=== PATIENT | male | born 1980 | race African-American/Black ===

== ENCOUNTER 2016-12-10 00:59 | Inpatient (IN) | payer SELFPAY ==
[2016-12-10] VITALS (12 sets, daily range): BP systolic 115–161; BP diastolic 75–96; PULSE 85–108; RESP 12–15; TEMP 98.3–99.3; O2SAT 99–100
[2016-12-10] MEDS ORDERED: DIPHTH/TETANUS/ACEL PERTUSSIS (BOOSTER) 0.5 ML VIAL/PFS IM ONE ×2 (01:03→01:31)
[2016-12-10] MEDS ORDERED: ceFAZolin 2 GM PREMIX 50 ML ONE (01:03)
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
[2016-12-10 01:20] LABS: I-STAT POTASSIUM 3.3 MMOL/L (3.5-4.9)
[2016-12-10 01:22] LABS: AUTOMATED NEUTROPHIL # 2.9 TH/MM3 (1.8-7.7); BASOPHIL # 0.1 TH/MM3 (0-0.2); EOSINOPHIL # 0.1 TH/MM3 (0-0.4); EOSINOPHIL % 1.7 % (0.0-4.0); HEMATOCRIT 37.3 % (39.0-51.0); HEMO FLAGS DIFF FINAL; LYMPHOCYTE # 3.3 TH/MM3 (1.0-4.8); MEAN CELL VOLUME 105.9 FL (80.0-100.0); MEAN CORPUSCULAR HEMOGLOBIN 36.2 PG (27.0-34.0); MEAN CORPUSCULAR HGB CONC 34.2 % (32.0-36.0); NEUT % 42.3 % (16.0-70.0); PLATELET COUNT 165 TH/MM3 (150-450); RED BLOOD COUNT 3.53 MIL/MM3 (4.50-5.90); RED CELL DISTRIBUTION WIDTH 15.4 % (11.6-17.2); WHITE BLOOD COUNT 6.8 TH/MM3 (4.0-11.0)
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
[2016-12-10] MEDS ORDERED: ceFAZolin 2 GM PREMIX 50 ML IV STA (01:32)
[2016-12-10 01:33] LABS: APTT (PATIENT) 21.7 SEC (24.3-30.1); PROTHROMBIN TIME - PATIENT 10.8 SEC (9.8-11.6)
[2016-12-10] MEDS ORDERED: metroNIDAZOLE 500 MG INJ 100 ML IV ONE (01:38)
[2016-12-10] MEDS ORDERED: SODIUM CHLOR 0.9% 1000 ML INJ 1,000 ML IV ONE (01:45)
[2016-12-10 02:11] LABS: AUTOMATED NEUTROPHIL # 4.1 TH/MM3 (1.8-7.7); BASOPHIL % 0.8 % (0.0-2.0); EOSINOPHIL # 0.1 TH/MM3 (0-0.4); EOSINOPHIL % 1.1 % (0.0-4.0); HEMATOCRIT 25.2 % (39.0-51.0); HEMO FLAGS DIFF FINAL; LYMPH % 21.8 % (9.0-44.0); LYMPHOCYTE # 1.3 TH/MM3 (1.0-4.8); MEAN CELL VOLUME 104.8 FL (80.0-100.0); MEAN CORPUSCULAR HEMOGLOBIN 36.4 PG (27.0-34.0); MEAN CORPUSCULAR HGB CONC 34.8 % (32.0-36.0); MONO % 7.6 % (0.0-8.0); NEUT % 68.7 % (16.0-70.0); PLATELET COUNT 112 TH/MM3 (150-450); RED CELL DISTRIBUTION WIDTH 15.2 % (11.6-17.2); WHITE BLOOD COUNT 5.9 TH/MM3 (4.0-11.0)
[2016-12-10 02:22] LABS: APTT (PATIENT) 31.2 SEC (24.3-30.1); INTERNATIONAL NORMALIZED RATIO 1.1 RATIO; PROTHROMBIN TIME - PATIENT 12.7 SEC (9.8-11.6)
[2016-12-10 02:27] LABS: BLOOD GAS BASE EXCESS -7.6 mmol/L (-2-2); BLOOD GAS CARBOXYHEMOGLOBIN 7.5 % (0-4); BLOOD GAS HCO3 18 mmol/L (22-26); BLOOD GAS METHEMOGLOBIN 1.2 % (0-2); BLOOD GAS O2 HGB SATURATION 91 % (90-100); BLOOD GAS OXYGEN CONTENT 16.1 Vol % (12.0-20.0); BLOOD GAS PCO2 40 mmHg (38-42); BLOOD GAS PO2 220 mmHg (61-120); BLOOD GAS TOTAL HGB 12.2 G/DL (12.0-16.0); TEMP CORR TO 98.6
[2016-12-10 02:28] LABS: CRITICAL VALUE YES; FIO2 54 %; OXYGEN DEVICE VENTILATOR; VENT SETTINGS UNKNOWN-OR
[2016-12-10 02:29] LABS: DRAW SITE UNKNOWN-OR; STAT NO
[2016-12-10 02:30] LABS: BICARBONATE 21.2 MEQ/L (21.0-32.0); POTASSIUM 3.5 MEQ/L (3.5-5.1)
[2016-12-10 02:36] LABS: REVIEW FLAG FINAL
[2016-12-10 02:45] LABS: CALCIUM-PROTEIN CORRECTED 8.1 MG/DL (8.5-10.1)
[2016-12-10] MEDS: LACTATED RINGER'S 1000 ML INJ 1,000 ML IV SCH ×3 (02:53→16:41)
[2016-12-10] MEDS ORDERED: fentaNYL DRIP 250 ML IV SCH ×2 (03:00→17:00)
[2016-12-10] MEDS ORDERED: ONDANSETRON HCL 4 MG/2 ML VIAL IV PRN (03:00)
[2016-12-10] MEDS ORDERED: CHLORHEXIDINE GLUCONATE 2 % 1 PACK (2 CLOTHS) TOP PRN (03:00)
[2016-12-10] MEDS ORDERED: MAGNESIUM HYDROXIDE SUSP 30 ML CUP PO PRN (03:00)
[2016-12-10] MEDS ORDERED: MISCELLANEOUS NURSING INFORMATION XX SCH (03:00)
[2016-12-10] MEDS ORDERED: DO NOT ADM ANY ANTICOAGULANT DRUGS PRN (03:03)
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
[2016-12-10] MEDS ORDERED: MIDAZOLAM HCL 2 MG/2 ML VIAL ONE (03:20)
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
[2016-12-10] MEDS: CHLORHEXIDINE GLUCONATE 2 % 1 PACK (2 CLOTHS) TOP SCH (04:00)
--- NOTE | 2016-12-10 04:05 | RADRPT ---
EXAM DATE/TIME: 12/10/2016 04:25 [facility] COMPARISON: CHEST SINGLE AP, December 10, 2016, 0:54. INDICATIONS : Left chest tube placement MEDICAL HISTORY : None. SURGICAL HISTORY : None. ENCOUNTER: Initial ACUITY: 1 day PAIN SCORE: Non-responsive. LOCATION: Left chest FINDINGS: A single portable frontal view of the chest shows interval placement of a left thoracostomy tube. Tip is at the apex. No pneumothorax. Tip of the endotracheal tube 5 cm proximal to luis. The nasogastr ic tube in the body the stomach. The parenchymal consolidation on the left perihilar distribution on the prior study is no longer present. Lungs are clear. No effusions. Heart is normal in size. CONCLUSION: Left thoracostomy tube. No pneumothorax. Alessio Daley Jr., MD on December 10, 2016 at 4:02 Board Certified Radiologist. This report was verified electronically.
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
[2016-12-10 04:35] LABS: BLOOD GAS BASE EXCESS -4.2 mmol/L (-2-2); BLOOD GAS CARBOXYHEMOGLOBIN 4.5 % (0-4); BLOOD GAS HCO3 21 mmol/L (22-26); BLOOD GAS METHEMOGLOBIN 1.1 % (0-2); BLOOD GAS O2 HGB SATURATION 94 % (90-100); BLOOD GAS OXYGEN CONTENT 14.7 Vol % (12.0-20.0); BLOOD GAS PCO2 42 mmHg (38-42); BLOOD GAS PO2 207 mmHg (61-120); BLOOD GAS TOTAL HGB 10.8 G/DL (12.0-16.0); CRITICAL VALUE NO; OXYGEN DEVICE VENTILATOR; TEMP CORR TO 98.6
[2016-12-10 04:36] LABS: DRAW SITE ART LINE; FIO2 50 %; STAT NO; VENT SETTINGS SIMV/IMV
[2016-12-10] MEDS: PROPOFOL 1000 MG/100 ML INJ 100 ML IV SCH ×2 (06:32→09:49)
[2016-12-10 06:40] LABS: HEMATOCRIT 29.5 % (39.0-51.0); MEAN CELL VOLUME 104.9 FL (80.0-100.0); MEAN CORPUSCULAR HEMOGLOBIN 35.8 PG (27.0-34.0); MEAN CORPUSCULAR HGB CONC 34.1 % (32.0-36.0); PLATELET COUNT 123 TH/MM3 (150-450); RED BLOOD COUNT 2.81 MIL/MM3 (4.50-5.90); RED CELL DISTRIBUTION WIDTH 15.3 % (11.6-17.2); REVIEW FLAG FINAL; WHITE BLOOD COUNT 12.4 TH/MM3 (4.0-11.0)
[2016-12-10 06:53] LABS: BICARBONATE 23.2 MEQ/L (21.0-32.0); CALCIUM-PROTEIN CORRECTED 8.2 MG/DL (8.5-10.1); MAGNESIUM 1.8 MG/DL (1.5-2.5); POTASSIUM 3.4 MEQ/L (3.5-5.1); TOTAL BILIRUBIN ADULT 0.3 MG/DL (0.2-1.0)
[2016-12-10] MEDS ORDERED: POTASSIUM PHOSPHATE INJ 30 MMOL in SODIUM CHLOR 0.9% 250 ML INJ 250 ML IV PRN (08:15)
[2016-12-10] MEDS ORDERED: MAGNESIUM OXIDE 400 MG TAB PO PRN (08:15)
[2016-12-10] MEDS ORDERED: MAGNESIUM SULFATE INJ 2 GM in SODIUM CHLORIDE 0.9% INJ 96 ML IV PRN (08:15)
[2016-12-10] MEDS ORDERED: POTASSIUM CHLOR 20 MEQ PREMIX 100 ML IV PRN (08:15)
[2016-12-10] MEDS ORDERED: POTASSIUM PHOSPHATE MONOBASIC 500 MG TAB PO/TUBE PRN (08:15)
[2016-12-10] MEDS ORDERED: POTASSIUM PHOSPHATE MONOBASIC 500 MG TAB PO PRN (08:15)
[2016-12-10] MEDS ORDERED: MAGNESIUM SULFATE INJ 4 GM in SODIUM CHLORIDE 0.9% INJ 92 ML IV PRN (08:15)
[2016-12-10] MEDS ORDERED: SODIUM PHOSPHATE INJ 30 MMOL in SODIUM CHLOR 0.9% 250 ML INJ 240 ML IV PRN (08:15)
[2016-12-10] MEDS ORDERED: POTASSIUM CHLOR 40 MEQ PREMIX 100 ML IV PRN ×2 (08:15)
[2016-12-10] MEDS ORDERED: RESP: ALBUTEROL 2.5 MG/IPRATROPIUM 0.5 MG NEB (PRN) NEB (08:15)
[2016-12-10] MEDS ORDERED: DEXMEDETOMIDINE INJ 200 MCG in SODIUM CHLORIDE 0.9% INJ 50 ML IV SCH (09:30)
[2016-12-10] MEDS: RESP: ALBUTEROL 2.5 MG/IPRATROPIUM 0.5 MG NEB (SCH) NEB ×3 (09:40→20:30)
[2016-12-10] MEDS: DOCUSATE SODIUM 100 MG CAP PO SCH ×2 (09:49→20:43)
[2016-12-10] MEDS: LACTULOSE SYRUP 20 GM/30 ML CUP PO SCH (09:49)
[2016-12-10] MEDS: PANTOPRAZOLE SODIUM 40 MG VIAL IV PUSH SCH (09:49)
[2016-12-10] MEDS ORDERED: MULTIVITAMIN INJ 10 ML, THIAMINE INJ 100 MG, FOLIC ACID INJ 1 MG in SODIUM CHLORID 0.9%... IV ONE (10:15)
[2016-12-10] MEDS: CHLORHEXIDINE 0.12% (ORAL KIT) 15 ML CUP MT SCH (10:16)
[2016-12-10] MEDS ORDERED: LACTATED RINGER'S 1000 ML INJ 2,000 ML IV ONE (12:00)
[2016-12-10] MEDS ORDERED: PROPOFOL 200 MG/20 ML AMP IV ONE (12:00)
[2016-12-10] MEDS: MORPHINE SULFATE 4 MG/ML INJ IV PRN ×4 (13:29→21:54)
[2016-12-10] MEDS: ACETAMINOPHEN/HYDROcodone 325 MG/7.5 MG TAB PO PRN ×2 (14:31→20:51)
[2016-12-10] MEDS: POTASSIUM CHLOR 20 MEQ PREMIX 100 ML IV PRN ×2 (14:31→17:34)
[2016-12-10] MEDS: ENOXAPARIN SODIUM 30 MG/0.3 ML SYRINGE SQ SCH (17:57)
[2016-12-11] VITALS (10 sets, daily range): BP systolic 156–176; BP diastolic 89–102; PULSE 98–111; RESP 12–20; TEMP 98–101.4; O2SAT 92–99
[2016-12-11] MEDS: MORPHINE SULFATE 4 MG/ML INJ IV PRN ×6 (00:08→10:26)
[2016-12-11] MEDS: LACTATED RINGER'S 1000 ML INJ 1,000 ML IV SCH (00:54)
[2016-12-11] MEDS: SODIUM CHLORIDE 0.9% FLUSH 10 ML FLUSH IV FLUSH PRN ×2 (02:22→04:39)
[2016-12-11] MEDS: ACETAMINOPHEN/HYDROcodone 325 MG/7.5 MG TAB PO PRN ×2 (02:23→08:25)
[2016-12-11] MEDS: RESP: ALBUTEROL 2.5 MG/IPRATROPIUM 0.5 MG NEB (SCH) NEB (04:00)
[2016-12-11] MEDS: CHLORHEXIDINE GLUCONATE 2 % 1 PACK (2 CLOTHS) TOP SCH (04:00)
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
[2016-12-11 04:22] LABS: AUTOMATED NEUTROPHIL # 8.3 TH/MM3 (1.8-7.7); BASOPHIL # 0.1 TH/MM3 (0-0.2); BASOPHIL % 0.6 % (0.0-2.0); EOSINOPHIL # 0.1 TH/MM3 (0-0.4); EOSINOPHIL % 0.6 % (0.0-4.0); HEMATOCRIT 28.8 % (39.0-51.0); HEMO FLAGS DIFF FINAL; LYMPH % 14.1 % (9.0-44.0); LYMPHOCYTE # 1.5 TH/MM3 (1.0-4.8); MEAN CORPUSCULAR HEMOGLOBIN 36.5 PG (27.0-34.0); MEAN CORPUSCULAR HGB CONC 34.8 % (32.0-36.0); MONO % 7.7 % (0.0-8.0); PLATELET COUNT 116 TH/MM3 (150-450); RED BLOOD COUNT 2.75 MIL/MM3 (4.50-5.90); RED CELL DISTRIBUTION WIDTH 15.5 % (11.6-17.2); WHITE BLOOD COUNT 10.7 TH/MM3 (4.0-11.0)
[2016-12-11 04:57] LABS: POTASSIUM 3.4 MEQ/L (3.5-5.1)
[2016-12-11] MEDS: ENOXAPARIN SODIUM 30 MG/0.3 ML SYRINGE SQ SCH ×2 (06:17→16:45)
[2016-12-11] MEDS: POTASSIUM CHLOR 20 MEQ PREMIX 100 ML IV PRN (06:18)
[2016-12-11] MEDS: CHLORHEXIDINE 0.12% (ORAL KIT) 15 ML CUP MT SCH (08:00)
[2016-12-11] MEDS: LACTULOSE SYRUP 20 GM/30 ML CUP PO SCH (08:17)
[2016-12-11] MEDS: PANTOPRAZOLE SODIUM 40 MG VIAL IV PUSH SCH (08:25)
[2016-12-11] MEDS: DOCUSATE SODIUM 100 MG CAP PO SCH (08:25)
[2016-12-11] MEDS ORDERED: LACTULOSE SYRUP 20 GM/30 ML CUP PO PRN (10:15)
[2016-12-11] MEDS: diphenhydrAMINE HCL 50 MG/ML VIAL IV PUSH PRN ×2 (12:17→21:54)
[2016-12-11] MEDS: HYDROmorphone HCL PF 1 MG/ML VIAL IV PUSH PRN ×3 (12:17→21:23)
[2016-12-11] MEDS: ACETAMINOPHEN 325 MG TAB PO PRN ×2 (12:39→16:44)
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
[2016-12-11] MEDS: DOCUSATE SODIUM 50 MG/SENNA 8.6 MG TAB PO SCH (20:07)
[2016-12-11] MEDS ORDERED: DOCUSATE SODIUM 50 MG/SENNA 8.6 MG TAB PO SCH (21:00)
[2016-12-12] VITALS (7 sets, daily range): BP systolic 134–168; BP diastolic 90–105; PULSE 98–124; RESP 16–21; TEMP 97–99.8; O2SAT 93–97
[2016-12-12] MEDS: HYDROmorphone HCL PF 1 MG/ML VIAL IV PUSH PRN ×5 (01:12→21:16)
[2016-12-12] MEDS ORDERED: HYDROmorphone HCL PF 1 MG/ML VIAL IV ONE (02:45)
[2016-12-12] MEDS: CHLORHEXIDINE GLUCONATE 2 % 1 PACK (2 CLOTHS) TOP SCH (04:00)
[2016-12-12] MEDS: ENOXAPARIN SODIUM 30 MG/0.3 ML SYRINGE SQ SCH ×2 (04:17→16:59)
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
[2016-12-12] MEDS ORDERED: MISCELLANEOUS NURSING INFORMATION XX SCH (07:30)
[2016-12-12] MEDS ORDERED: oxyCODONE/ACETAMINOPHEN 5 MG/325 MG TAB PO PRN (08:30)
[2016-12-12] MEDS: oxyCODONE/ACETAMINOPHEN 5 MG/325 MG TAB PO PRN ×4 (08:45→22:44)
[2016-12-12] MEDS: DOCUSATE SODIUM 50 MG/SENNA 8.6 MG TAB PO SCH ×2 (08:45→21:20)
[2016-12-12] MEDS: diphenhydrAMINE HCL 50 MG/ML VIAL IV PUSH PRN ×3 (08:45→21:16)
[2016-12-12] MEDS: PANTOPRAZOLE SOD 40 MG DELAYED RELEASE TAB PO SCH (08:45)
[2016-12-12 10:24] LABS: AUTOMATED NEUTROPHIL # 8.2 TH/MM3 (1.8-7.7); BASOPHIL % 0.4 % (0.0-2.0); EOSINOPHIL # 0.1 TH/MM3 (0-0.4); EOSINOPHIL % 0.7 % (0.0-4.0); HEMATOCRIT 30.1 % (39.0-51.0); HEMO FLAGS DIFF FINAL; LYMPH % 14.2 % (9.0-44.0); LYMPHOCYTE # 1.6 TH/MM3 (1.0-4.8); MEAN CELL VOLUME 104.2 FL (80.0-100.0); MEAN CORPUSCULAR HEMOGLOBIN 36.5 PG (27.0-34.0); MONO % 10.8 % (0.0-8.0); NEUT % 73.9 % (16.0-70.0); PLATELET COUNT 146 TH/MM3 (150-450); RED BLOOD COUNT 2.89 MIL/MM3 (4.50-5.90); RED CELL DISTRIBUTION WIDTH 14.8 % (11.6-17.2); WHITE BLOOD COUNT 11.2 TH/MM3 (4.0-11.0)
[2016-12-12 10:43] LABS: ALKALINE PHOSPHATASE 65 U/L (45-117); ALT (GPT) 492 U/L (12-78); ANION GAP 7 MEQ/L (5-15); AST (GOT) 359 U/L (15-37); BICARBONATE 28.6 MEQ/L (21.0-32.0); BLOOD UREA NITROGEN 7 MG/DL (7-18); CHLORIDE 98 MEQ/L (98-107); GLOMERULAR FILTRATION RATE 91 ML/MIN (>89); POTASSIUM 3.6 MEQ/L (3.5-5.1); SODIUM (NA) 134 MEQ/L (136-145); TOTAL BILIRUBIN ADULT 0.9 MG/DL (0.2-1.0)
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
[2016-12-13] VITALS: BP 152/94; PULSE 103; RESP 22; TEMP 97.7; O2SAT 96
[2016-12-13] MEDS: HYDROmorphone HCL PF 1 MG/ML VIAL IV PUSH PRN ×3 (02:07→20:14)
[2016-12-13] MEDS: ENOXAPARIN SODIUM 30 MG/0.3 ML SYRINGE SQ SCH ×2 (04:09→17:26)
[2016-12-13] MEDS: diphenhydrAMINE HCL 50 MG/ML VIAL IV PUSH PRN ×3 (04:09→22:30)
[2016-12-13] MEDS: oxyCODONE/ACETAMINOPHEN 5 MG/325 MG TAB PO PRN ×5 (04:10→22:30)
[2016-12-13 08:00] VITALS: BP 136/86; PULSE 96; RESP 17; TEMP 97.9; O2SAT 98
[2016-12-13] MEDS: PANTOPRAZOLE SOD 40 MG DELAYED RELEASE TAB PO SCH (08:11)
[2016-12-13] MEDS: DOCUSATE SODIUM 50 MG/SENNA 8.6 MG TAB PO SCH ×2 (08:11→20:14)
[2016-12-13 10:29] VITALS: O2SAT 99
[2016-12-13 12:00] VITALS: BP 141/70; PULSE 93; RESP 17; TEMP 97.8; O2SAT 97
--- NOTE | 2016-12-13 13:43 | RADRPT ---
EXAM DATE/TIME: 12/13/2016 13:20 [facility] COMPARISON: CHEST SINGLE AP, December 12, 2016, 15:14. INDICATIONS : Evaluate chest post chest tube removal MEDICAL HISTORY : None. SURGICAL HISTORY : None. ENCOUNTER: Subsequent ACUITY: 3 days PAIN SCORE: 4/10 LOCATION: chest FINDINGS: Single view of the chest obtained in expiration demonstrates interval removal of a left-sided chest t ube. No visible pneumothorax. Postsurgical changes overlying the inferior medial right hemithorax. Th e right hemithorax is clear. Heart size is normal. CONCLUSION: Interval removal of the left-sided chest tube with no evidence of residual pneumothorax. Iveth Lo MD on December 13, 2016 at 13:40 Board Certified Radiologist. This report was verified electronically.
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
[2016-12-13 16:00] VITALS: BP 134/90; PULSE 104; RESP 17; TEMP 97.8; O2SAT 97
[2016-12-13 20:00] VITALS: BP 128/92; PULSE 76; RESP 20; TEMP 97.6; O2SAT 96
[2016-12-14 00:08] VITALS: BP 136/90; PULSE 90; RESP 21; TEMP 97.5; O2SAT 96
[2016-12-14] MEDS: HYDROmorphone HCL PF 1 MG/ML VIAL IV PUSH PRN ×2 (00:28→05:07)
[2016-12-14] MEDS: oxyCODONE/ACETAMINOPHEN 5 MG/325 MG TAB PO PRN ×2 (02:45→06:59)
[2016-12-14] MEDS: ENOXAPARIN SODIUM 30 MG/0.3 ML SYRINGE SQ SCH (05:06)
[2016-12-14] MEDS: diphenhydrAMINE HCL 50 MG/ML VIAL IV PUSH PRN (05:06)
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
[2016-12-14 08:00] VITALS: BP 126/95; PULSE 140; RESP 18; TEMP 97; O2SAT 96
[2016-12-14] MEDS ORDERED: OXYC1TAB63 PO (11:38)
[2016-12-14] MEDS ORDERED: SENN1TAB PO (11:38)
[2016-12-14] MEDS ORDERED: PHENYLEPH/NS 1000 MCG/10 ML SYR IV ONE (12:00)
[2016-12-14] MEDS ORDERED: NORMOSOL R INJ 3,000 ML IV ONE (12:00)
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
== END 2016-12-14 13:03 | disposition home or self-care (01) | DRG 957 ==
LOC: HOR 00:59 → EDBD 01:21 → NEDA 01:21 → N03B 05:06 → N07A 12-11 14:45
PROVIDERS: ADMIT Surgery; ATTEND Surgery
PROC: 0WQFXZZ Repair Abdominal Wall, External Approach (ICD-10-PCS; 2016-12-10)
PROC: 0WQ8XZZ Repair Chest Wall, External Approach (ICD-10-PCS; 2016-12-10)
PROC: 3E1M38Z Irrigation of Peritoneal Cavity using Irrigating Substance, Percutaneous Approach (ICD-10-PCS; 2016-12-10)
PROC: 0W9B30Z Drainage of Left Pleural Cavity with Drainage Device, Percutaneous Approach (ICD-10-PCS; 2016-12-10)
PROC: 0HQ6XZZ Repair Back Skin, External Approach (ICD-10-PCS; 2016-12-10)
PROC: 5A1935Z Respiratory Ventilation, Less than 24 Consecutive Hours (ICD-10-PCS; 2016-12-10)
PROC: 0FQ00ZZ Repair Liver, Open Approach (ICD-10-PCS; principal; 2016-12-10 01:22)
DX: S36.113A Laceration of liver, unspecified degree, initial encounter (principal); S27.2XXA Traumatic hemopneumothorax, initial encounter; K66.1 Hemoperitoneum; J96.90 Respiratory failure, unspecified, unspecified whether with hypoxia or hypercapnia; S21.312A Laceration without foreign body of left front wall of thorax with penetration into thoracic cavity, initial encounter; S21.112A Laceration without foreign body of left front wall of thorax without penetration into thoracic cavity, initial encounter; S22.43XA Multiple fractures of ribs, bilateral, initial encounter for closed fracture; S36.893A Laceration of other intra-abdominal organs, initial encounter; X99.9XXA Assault by unspecified sharp object, initial encounter; Y93.9 Activity, unspecified; Y92.9 Unspecified place or not applicable; Y99.9 Unspecified external cause status; S31.119A Laceration without foreign body of abdominal wall, unspecified quadrant without penetration into peritoneal cavity, initial encounter; S21.219A Laceration without foreign body of unspecified back wall of thorax without penetration into thoracic cavity, initial encounter; D64.89 Other specified anemias
CPT/HCPCS: 71010; 80048; 80053; 82435; 82565; 82805; 82947; 83735; 84100; 84132; 84155; 84295; 84520; 85014; 85018; 85025; 85027; 85610; 85730; 86850; 86900; 86901; 86920; 87641; 90471; 90715; 94002; 94150; 94640; 94664; 96374; 96375; 99291; C9113; G0390; J0690; J1170; J1200; J1650; J2250; J2270; J2370; J3010; J3411; J3480; J7040; J7120

== ENCOUNTER 2016-12-17 12:18 | Emergency (ER) | payer SELFPAY ==
[~2016-12-17] VITALS: Ht 182.9 cm; Wt 65.0 kg
[~2016-12-17 12:18] MED LIST: OXYC1TAB63 PO; SENN1TAB PO
[2016-12-17 12:19] VITALS: BP 149/74; PULSE 130; RESP 20; TEMP 98.4; O2SAT 98
[2016-12-17 13:08] VITALS: BP 123/91; PULSE 120; RESP 20
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
[2016-12-17 13:45] VITALS: PULSE 100; RESP 20
[2016-12-18] MEDS ORDERED: PERC5TAB12 PO (13:08)
== END 2016-12-17 13:46 | disposition home or self-care (01) ==
LOC: NEPD 12:18
DX: Z48.02 Encounter for removal of sutures (principal)
CPT/HCPCS: 99281

== ENCOUNTER 2016-12-18 11:10 | Emergency (ER) | payer SELFPAY ==
[~2016-12-18] VITALS: Ht 182.9 cm; Wt 68.0 kg
[2016-12-18 11:11] VITALS: BP 170/73; PULSE 134; RESP 20; TEMP 98.4; O2SAT 98
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
[2016-12-18] MEDS ORDERED: SODIUM CHLOR 0.9% 1000 ML INJ 1,000 ML IV SCH (12:15)
[2016-12-18 12:26] VITALS: BP 121/77; PULSE 100; RESP 18; O2SAT 100
[2016-12-18 12:31] LABS: AUTOMATED NEUTROPHIL # 5.2 TH/MM3 (1.8-7.7); BASOPHIL # 0.1 TH/MM3 (0-0.2); BASOPHIL % 1.4 % (0.0-2.0); EOSINOPHIL # 0.1 TH/MM3 (0-0.4); EOSINOPHIL % 1.5 % (0.0-4.0); HEMATOCRIT 30.2 % (39.0-51.0); HEMO FLAGS DIFF FINAL; LYMPH % 19.2 % (9.0-44.0); LYMPHOCYTE # 1.5 TH/MM3 (1.0-4.8); MEAN CELL VOLUME 102.2 FL (80.0-100.0); MEAN CORPUSCULAR HEMOGLOBIN 35.5 PG (27.0-34.0); MEAN CORPUSCULAR HGB CONC 34.7 % (32.0-36.0); MONO % 9.8 % (0.0-8.0); NEUT % 68.1 % (16.0-70.0); PLATELET COUNT 536 TH/MM3 (150-450); RED BLOOD COUNT 2.95 MIL/MM3 (4.50-5.90); RED CELL DISTRIBUTION WIDTH 15.1 % (11.6-17.2); WHITE BLOOD COUNT 7.7 TH/MM3 (4.0-11.0)
[2016-12-18 12:44] LABS: ALT (GPT) 104 U/L (12-78); ANION GAP 7 MEQ/L (5-15); AST (GOT) 31 U/L (15-37); BICARBONATE 32.4 MEQ/L (21.0-32.0); BLOOD UREA NITROGEN 12 MG/DL (7-18); CHLORIDE 100 MEQ/L (98-107); GLOMERULAR FILTRATION RATE 148 ML/MIN (>89); POTASSIUM 3.4 MEQ/L (3.5-5.1); SODIUM (NA) 139 MEQ/L (136-145)
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
[2016-12-18 12:53] LABS: ALKALINE PHOSPHATASE 83 U/L (45-117); TOTAL BILIRUBIN ADULT 0.3 MG/DL (0.2-1.0)
[2016-12-18] MEDS ORDERED: PERC5TAB12 PO (13:08)
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
== END 2016-12-18 13:27 | disposition home or self-care (01) ==
LOC: NEPD 11:10
DX: G89.18 Other acute postprocedural pain (principal); F12.920 Cannabis use, unspecified with intoxication, uncomplicated; R00.0 Tachycardia, unspecified; F17.210 Nicotine dependence, cigarettes, uncomplicated; D64.9 Anemia, unspecified; E87.6 Hypokalemia
CPT/HCPCS: 71010; 80053; 85025; 99284; J7030

== ENCOUNTER 2016-12-20 16:23 | Emergency (ER) | payer SELFPAY ==
[~2016-12-20] VITALS: Ht 182.9 cm; Wt 68.0 kg
[~2016-12-20 16:23] MED LIST changes: +PERC5TAB12 PO
[2016-12-20 16:24] VITALS: BP 133/80; PULSE 98; RESP 15; TEMP 98.2; O2SAT 98
[2016-12-20] MEDS ORDERED: PERC5TAB12 PO (16:56)
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
== END 2016-12-20 17:39 | disposition home or self-care (01) ==
LOC: NEPD 16:23
DX: R07.9 Chest pain, unspecified (principal); Z76.0 Encounter for issue of repeat prescription
CPT/HCPCS: 99281

== ENCOUNTER 2016-12-24 10:46 | Emergency (ER) | payer SELFPAY ==
[~2016-12-24] VITALS: Ht 182.9 cm; Wt 67.0 kg
[2016-12-24 10:47] VITALS: BP 125/79; PULSE 103; RESP 15; TEMP 98.2; O2SAT 98
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
== END 2016-12-24 11:33 | disposition home or self-care (01) ==
LOC: NEPK 10:46
DX: G89.18 Other acute postprocedural pain (principal); Z02.89 Encounter for other administrative examinations
CPT/HCPCS: 99281